=== PATIENT | male | born 1945 | race Caucasian/White ===

== ENCOUNTER 2022-01-16 08:15 | Inpatient (IN) | payer OTHER ==
[~2022-01-16] VITALS: Ht 165.1 cm; Wt 56.2 kg
[2022-01-17] MEDS ORDERED: COZAAR50 MG PO (14:38)
[2022-01-17] MEDS ORDERED: SIMVASTAT PO (14:39)
[2022-02-12] MEDS ORDERED: SIMVASTATIN20 MG (10:12)
== END 2022-02-15 20:00 | disposition home or self-care (01) | DRG 330 ==
LOC: SURG 01-22 08:15 → O/R 02-12 08:42 → SURG 02-12 14:01
PROVIDERS: ADMIT Surgery; ATTEND Surgery
PROC: 07BC4ZZ Excision of Pelvis Lymphatic, Percutaneous Endoscopic Approach (ICD-10-PCS; 2022-02-12)
PROC: 0DBP4ZZ Excision of Rectum, Percutaneous Endoscopic Approach (ICD-10-PCS; 2022-02-12)
PROC: 0DTN4ZZ Resection of Sigmoid Colon, Percutaneous Endoscopic Approach (ICD-10-PCS; principal; 2022-02-12 10:00)
DX: C18.7 Malignant neoplasm of sigmoid colon (principal); K92.1 Melena; R59.0 Localized enlarged lymph nodes; K59.09 Other constipation; Z20.822 Contact with and (suspected) exposure to COVID-19; E78.5 Hyperlipidemia, unspecified; I11.9 Hypertensive heart disease without heart failure; F17.200 Nicotine dependence, unspecified, uncomplicated; F43.20 Adjustment disorder, unspecified

== ENCOUNTER 2022-02-08 09:32 | Outpatient (CLI) | payer OTHER ==
[~2022-02-08 09:32] MED LIST: COZAAR50 MG PO; SIMVASTAT PO
== END 2022-02-08 14:59 | disposition home or self-care (01) ==
LOC: LAB 09:32
PROVIDERS: ATTEND Surgery
DX: Z03.818 Encounter for observation for suspected exposure to other biological agents ruled out (principal); Z20.822 Contact with and (suspected) exposure to COVID-19